=== PATIENT | female | born 1995 | race Asian ===

== ENCOUNTER 2016-07-25 11:48 | Emergency (ER) | payer SELFPAY ==
[2016-07-25 12:13] VITALS: BP 109/78; PULSE 100; RESP 18; TEMP 98.8; O2SAT 97
--- NOTE | 2016-07-25 12:30 | UCPHY ---
[id number] for "toxic poisoning," also c/o sinus congestion for "months," states recurrent, fever on 30th high of 39C. concerned for recent trip to [place] and possible exposure to "toxins and sewage" when taking bath at hotel and noted black fluids coming from shower, pt reports skin exposed to fluid, attempted to rinse off immediately. pt feels that all s/sx due to that exposure. HPI/ROS: CHIEF COMPLAINT: Worried about having been poisoned HISTORY OF PRESENT ILLNESS: This is a generally healthy 20-year-old female who presents with multiple complaints. 1st complaint is of sinusitis. She states that she has postnasal drip that is causing her to cough. She is having sinus pain. She reports a history of recurrent sinusitis for which she takes an antibiotic that was given to her in [facility]. She has this antibiotic and has been taking add for the past 2 days. She continues with symptoms. Her 2nd complaint is of possibly having been poisoned. She was staying in a hotel in [place] and noted that the water coming over the tap was brown. In the shower the water was initially clear, then became black. She states that she had a black residue on her skin. She would like me to test for toxic poisoning. She did not report or concerns to the hotel. This occurred last week. REVIEW OF SYSTEMS: A ten point review of systems was performed and is negative with the exception of the items mentioned in the HPI. Source: Patient Exam Limitations: No limitations - Personal History LMP (Females 10-55): 1-7 Days Ago - Medical/Surgical History Hx Asthma: No Hx Chronic Respiratory Disease: No Hx Diabetes: No Hx Cardiac Disease: No Hx Renal Disease: No Hx Cirrhosis: No Hx Alcoholism: No Hx HIV/AIDS: No Hx Splenectomy or Spleen Trauma: No Other PMH: Mild Asthma, sinusitis - Family History Significant Family History: No pertinent family hx - Social History Smoking Status: Never smoked - Physical Exam Exam: General Appearance: Alert. Vital signs reviewed. Vital signs normal. Eyes: Pupils equal and round, no conjunctival injection, no discharge. Anicteric. ENT, Mouth: Mucous membranes are moist, no oropharyngeal erythema or edema. Neck: No lymphadenopathy, supple. Respiratory: Lungs are clear to auscultation; no wheezes, rales, or rhonchi. Cardiovascular: Regular rate and rhythm; no murmur, rub, or gallop. Gastrointestinal: Abdomen is soft and nontender, no masses or organomegaly, bowel sounds normal. Skin: Warm and dry, no rashes on exposed skin, normal color. Back: Nontender to palpation over the thoracolumbar spine. No CVAT. Extremities: No lower extremity edema, no calf tenderness or swelling. Neurological: Alert and oriented. Moving all four extremities easily and equally. MAURI. EOMI. Facial expression symmetric. Tongue midline. Facial sensation intact to light touch. Psychiatric: Somewhat pressured speech. Difficult to direct. Normal affect. No agitation. Constitutional: Initial Vital Signs Temperature (C) 37.1 C 07/25/16 12:07 Heart Rate 100 07/25/16 12:07 Respiratory Rate 18 07/25/16 12:07 Blood Pressure 109/78 07/25/16 12:07 O2 Sat (%) 97 07/25/16 12:07 O2 Delivery Mode Room Air Allergies/Adverse Reactions: amoxicillin trihydrate [From Augmentin] Allergy (Verified 07/25/16 12:05) potassium clavulanate [From Augmentin] Allergy (Verified 07/25/16 12:05) sulfamethoxazole [From Bactrim] Allergy (Verified 07/25/16 12:05) trimethoprim [From Bactrim] Allergy (Verified 07/25/16 12:05) Home Medications: Medication Instructions Recorded NK [No Known Home Meds] 03/09/14 Medical Decision Making ED Course/Re-evaluation: Sinus fullness and drainage. She is taking antibiotics that she received in [facility]. I am recommending that she continues with these. She does not appear ill or toxic. This is likely a viral infection. She is having no difficulty breathing or swallowing and is not febrile. I do not think that she needs strep pharyngitis testing. An influenza test was negative. She is not having difficulty swallowing or breathing. I do not suspect epiglottitis or retropharyngeal abscess. She is not short of breath or hypoxic and I am not worried about pneumonia. We spoke at some length about her concerns that she might have been poisoned by water. I have tried to dissuade her, unsuccessfully. She has no history of psychiatric illness. She denies auditory or visual hallucinations. Although she is stuck on this paranoid idea, she is not agitated and does not otherwise meet criteria for an emergency psychiatric evaluation. However, I am concerned about her insistence re: Poisoning. She is a student at the [employer] and I have recommended follow-up. She knows that they do have mental health services available to her. Departure - Departure Disposition: Home, Routine, Self-Care Clinical Impression: Viral syndrome, Sinusitis Condition: Good Instructions: Viral Syndrome (ED), Sinusitis (ED) Additional Instructions: Finish out the antibiotics that you have started. Adult Pain & Fever Control: We recommend Acetaminophen (Tylenol) and Ibuprofen (Motrin,Advil) for pain and fever control. When fever is high or pain severe, both drugs can be used at the same time, but at different intervals. Please note the time differences. Your dose is: Acetaminophen 650mg every 4 to 6 hours Ibuprofen 400mg every 8 hours with food OR Note: do not take Acetaminophen with Hydrocodone (Vicodin, Lortab) or Oycodone (Percocet). These medications also contain Acetaminophen. No more than 3000mg of Acetaminophen should be taken in 24 hours (for an adult). Referrals: [facility] [Outside] - As per Instructions - PQRS PQRS Measurement: Does not apply.
== END 2016-07-25 13:33 | disposition home or self-care (01) ==
LOC: CED 11:48
DX: Z03.6 Encounter for observation for suspected toxic effect from ingested substance ruled out (principal); B34.9 Viral infection, unspecified; J32.9 Chronic sinusitis, unspecified
CPT/HCPCS: 87400-PO; G0463-PO